=== PATIENT | male | born 1990 | race Caucasian/White ===

== ENCOUNTER 2022-07-27 01:06 | Emergency (ER) | payer BC, OTHER ==
[~2022-07-27] VITALS: Ht 167.7 cm; Wt 90.7 kg
[2022-07-27 01:15] VITALS: BP 136/90
--- NOTE | 2022-07-27 01:24 | ED Lower Extremity ---
General Chief Complaint: Lower Extremity Stated Complaint: RIGHT ANKLES INJURY Nursing Triage Note: PT TO [facility] W C/O RIGHT ANKLE PAIN SX 1200 ON 07/26/22, DENIES INJ, A&OX4. History of Present Illness Date Seen by Provider: Jul 27, 2022 Time Seen by Provider: 01:16 Initial Comments 32-year-old male is here with complaints of right ankle pain which began around noon yesterday. Patient works for the [employer] and thinks he may have twisted his ankle. Patient denies any falls, sensory loss, blunt trauma to the ankle. Patient is able to ambulate. Allergies and Home Medications Allergies Coded Allergies: No Known Drug Allergies (Unverified , 07/27/22) Patient Home Medication List Home Medication List Reviewed: Yes Review of Systems Constitutional: no symptoms reported EENTM: no symptoms reported Respiratory: no symptoms reported Cardiovascular: no symptoms reported Gastrointestinal: no symptoms reported Genitourinary: no symptoms reported Musculoskeletal: joint pain Skin: no symptoms reported Psychiatric/Neurological: No Symptoms Reported Past [id number]-Kqfoch Hx Patient Social History Tobacco Use?: No Use of E-Cig and/or Vaping dev: No Substance use?: No Alcohol Use?: No Immunizations Up To Date Influenza Vaccine Up-to-Date: No; Not Current Physical Exam Vital Signs Vital Signs - First Documented 07/27/22 01:15 Temp 36.1 Pulse 101 Resp 20 B/P (MAP) 136/90 (105) Pulse Ox 98 O2 Delivery Room Air Capillary Refill : Less Than 3 Seconds Height, Weight, BMI Height: '" Weight: lbs. oz. kg; 32.00 BMI Method: General Appearance: WD/WN, no apparent distress HEENT: PERRL/EOMI Neck: full range of motion Legs: right leg non-tender, right leg normal inspection, right leg normal range of motion, right leg no evidence of injury Knees: right knee non-tender, right knee normal inspection, right knee normal range of motion, right knee no evidence of injury Ankles: right ankle normal inspection, right ankle no evidence of injury, right ankle limited range of motion (Due to pain), right ankle pain, right ankle soft tissue tenderness Feet: right foot non-tender, right foot normal inspection, right foot normal range of motion, right foot no evidence of injury Neurologic/Tendon: normal sensation, normal motor functions, normal tendon functions Neurologic/Psychiatric: alert, oriented x 3 Skin: normal color Progress/Results/Core Measures Results/Orders My Orders Orders - LEONIE AVILA MD Ankle 3 View Right (07/27/22 01:27) Ibuprofen Tablet (Motrin Tablet) (07/27/22 01:30) Ibuprofen Tablet (Motrin Tablet) (07/27/22 01:36) Medications Given in ED Current Medications Medications Dose Ordered Sig/Sandra Route Start Time Stop Time Status Last Admin Dose Admin Ibuprofen 600 mg ONCE ONCE PO 07/27/22 01:30 07/27/22 01:39 DC 07/27/22 01:37 600 MG Vital Signs/I&O 07/27/22 01:15 Temp 36.1 Pulse 101 Resp 20 B/P (MAP) 136/90 (105) Pulse Ox 98 O2 Delivery Room Air Blood Pressure Mean: 105 Progress Progress Note : Progress Note 1. RIGHT ANKLE SPRAIN: - XR RIGHT ANKLE: No fracture - Ibuprofen 600mg STAT - Ice application - Ankle air brace and crutches - Follow up with Ortho within the next 3 to 7 days. Call to make appointment. -The patient was seen in the ED, and treated appropriately to presentation at a specific point in time. Patient is informed that there is a possibility that disease and illness can evolve and change in acuity rapidly or slowly after patient is discharged from the ER. Precautionary advice given to the patient for immediate return to ER if symptoms worsen or do not resolve, and to seek emergency care sooner rather than later. Pt also advised on the importance of PCP follow up and compliance with management and follow up plan with PCP and/or specialist, as this is part of the management plan. Pt verbally expressed understanding. Departure Impression Primary Impression: Right ankle sprain Disposition: HOME, SELF-CARE Condition: Improved Departure-Patient Inst. Referrals: NO,LOCAL PHYSICIAN (PCP/Family) Primary Care Physician Patient Instructions: Ankle Sprain ED, SPLINT CARE, Using Cold for Pain Add. Discharge Instructions: - Ice application - Ankle air brace and crutches -Ibuprofen as needed for pain - Follow up with Ortho within the next 3 to 7 days. Call to make appointment. All discharge instructions reviewed with patient and/or family. Voiced understanding. LEONIE AVILA MD Jul 27, 2022 01:24
[2022-07-27] MEDS ORDERED: IBUPROFEN 600 MG (MOTRIN) TAB PO ONE ×2 (01:30→01:36)
--- NOTE | 2022-07-27 07:34 | Diagnostic Imaging Report ---
CLINICAL INDICATION: Patient with right ankle pain. EXAM: X-ray of the right ankle, 3 views. COMPARISON: None. FINDINGS: There is no acute fracture or dislocation. There is mild soft tissue swelling adjacent to the ankle. Ankle mortise and syndesmotic joints unremarkable. There is mild spurring involving the inferior aspect of the lateral malleolus. IMPRESSION: There is no acute fracture or dislocation. Dictated by: Dictated on workstation # [id number]
== END 2022-07-27 02:14 | disposition home or self-care (01) ==
LOC: EDBD 01:13 → ER FS 01:13
DX: S93.401A Sprain of unspecified ligament of right ankle, initial encounter (principal); Z28.310 Unvaccinated for COVID-19; X58.XXXA Exposure to other specified factors, initial encounter; Y92.59 Other trade areas as the place of occurrence of the external cause; Y99.0 Civilian activity done for income or pay
CPT/HCPCS: 73610; 99283; L4350